=== PATIENT | male | born 1975 | race American Indian/Alaskan Native ===

== ENCOUNTER 2016-06-12 18:07 | Emergency (ER) | payer SELFPAY ==
[2016-06-12 18:18] VITALS: BP 144/95
== END 2016-06-13 03:16 | disposition left against medical advice (07) ==
LOC: ED 18:07
DX: M54.2 Cervicalgia (principal); M54.5 Low back pain; V89.2XXA Person injured in unspecified motor-vehicle accident, traffic, initial encounter; Y93.89 Activity, other specified; Y92.89 Other specified places as the place of occurrence of the external cause; Y99.8 Other external cause status; Z53.21 Procedure and treatment not carried out due to patient leaving prior to being seen by health care provider

== ENCOUNTER 2020-12-05 05:05 | Emergency (ER) | payer OTHER ==
[2020-12-05 05:20] VITALS: BP 137/91
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
== END 2020-12-05 08:23 | disposition home or self-care (01) ==
LOC: ED 05:05
DX: Z04.1 Encounter for examination and observation following transport accident (principal); Z72.89 Other problems related to lifestyle; V87.7XXA Person injured in collision between other specified motor vehicles (traffic), initial encounter; Y93.89 Activity, other specified; Y92.488 Other paved roadways as the place of occurrence of the external cause; Y99.8 Other external cause status
CPT/HCPCS: 99282